=== PATIENT | female | born 1990 | race Caucasian/White ===

== ENCOUNTER 2019-04-09 09:34 | Emergency (ER) | payer OTHER, SELFPAY ==
--- NOTE | 2019-04-09 10:58 | ED_ITS ---
HPI - Eye Problem General Chief complaint: Eye Problems Stated complaint: Left eye pain History of Present Illness HPI Narrative: 49-year-old female this morning with green discharge from the left eye a lot itching. She denies pain/blurring. No right eye involvement. She does not wear contacts. Denies nasal congestion sore throat or cough. She has 2 young children at home with her Related Data Allergies Allergy/AdvReac Type Severity Reaction Status Date / Time No Known Allergies Allergy Unverified 02/09/17 11:53 Review of Systems Constitutional: Constitutional: Reports no additional constitutional complaints Eyes: Eyes: Reports no additional eye complaints and Denies photophobia [facility] Family History Family History (Updated 04/09/19 @ 11:00 by Getachew Delaney MD) Daughter Seizure disorder Exam Const: General: no acute distress HENMT: Face and sinus: normal facial exam Eyes: Conjunctivae: conjunctivae normal Pupils: Equal, round and reactive pupils present Other: crusted d.c. on left lower eyelash [place] 20/20 os and and od Neck: Neck: no lymphadenopathy Course Vital Signs Vital signs: Vital Signs Temperature 36.6 C 04/09/19 11:02 Pulse Rate 78 04/09/19 11:02 Respiratory Rate 16 04/09/19 11:02 Blood Pressure 141/83 H 04/09/19 11:02 Pulse Oximetry 98 04/09/19 11:02 Temperature 36.6 C 04/09/19 11:02 Pulse Rate 78 04/09/19 11:02 Respiratory Rate 15 04/09/19 11:08 Blood Pressure 141/83 H 04/09/19 11:02 Pulse Oximetry 98 04/09/19 11:02 MDM - Eye Problem Differential Diagnosis Differential diagnosis: Likely corneal abrasion and conjunctivitis Discharge Plan Discharge Clinical Impression: Conjunctivitis Qualifiers: Conjunctivitis type: acute Acute conjunctivitis type: unspecified Laterality: left Qualified Code(s): H10.32 - Unspecified acute conjunctivitis, left eye Patient Disposition: Home, Self-Care Condition: Stable Instructions: Antibiotic Form, Conjunctivitis (ED) Additional Instructions: Follow up if no resolution in 5 days, return if worse. Prescriptions: New sulfacetamide sodium 10 % drops 1 drop EACH EYE Q4H Qty: 5 RF: 0 Follow-up/Referrals: PHYSICIAN NOT ON STAFF,NONSTAFF [Primary Care Provider] - Stand Alone Forms: Work/School Release IP Time of Disposition: 11:04 Discharge Date/Time: 04/09/19 11:10
[2019-04-09 11:02] VITALS: BP 141/83; PULSE 78; RESP 16; TEMP 36.6; O2SAT 98
[2019-04-09 11:08] VITALS: RESP 15
== END 2019-04-09 11:10 | disposition home or self-care (01) ==
PROVIDERS: Emergency Provider Family Medicine
DX: H10.32 Unspecified acute conjunctivitis, left eye (principal)
CPT/HCPCS: 99283

== ENCOUNTER 2019-11-30 21:53 | Emergency (ER) | payer OTHER, SELFPAY ==
--- NOTE | ~2019-11-30 | XR_ITS ---
EXAMINATION: XR sacrum coccyx min 2V DATE: 11/30/2019 22:40 INDICATION: Tailbone pain post fall TECHNIQUE: Frontal, angled frontal and lateral views of the sacrum and coccyx were obtained. COMPARISON: CT dated 08/13/2014 FINDINGS: Alignment is normal. No fracture. Sacral arches are intact. Bilateral sacroiliac and hip joint spaces are normal. Couple phleboliths in the left hemipelvis. IMPRESSION: 1. Negative sacrum and coccyx radiographs. Reviewed, dictated and finalized at location A.
--- NOTE | ~2019-11-30 | XR_ITS ---
EXAMINATION: XR ankle RT 2V DATE: 11/30/2019 22:39 INDICATION: Posterior right ankle pain post fall TECHNIQUE: Anteroposterior, oblique, mortise, and lateral views of the right ankle were obtained. COMPARISON: None. FINDINGS: Alignment is normal. No fracture. Joint spaces are well maintained. No ankle joint effusion. The so ft tissues are unremarkable. IMPRESSION: 1. Negative right ankle radiographs. Reviewed, dictated and finalized at location A.
[2019-11-30 22:02] VITALS: BP 139/78; PULSE 97; RESP 16; TEMP 36.8; O2SAT 100
[2019-11-30] MEDS: KETOROLAC (*BKC) 60 MG/2 ML VIAL IM (22:13)
--- NOTE | 2019-11-30 23:00 | ED.FALL ---
HPI - Fall General Chief Complaint: Fall Stated Complaint: R ankle pain, tailbone pain Source: patient Mode of arrival: ambulatory History of Present Illness HPI Narrative: this is a 29-year-old female with no significant past medical history fell down stairs earlier today causing pain in her lower back and in her right ankle, she slid stairs with no loss of consciousness currently no headache no blurry vision no nausea or vomiting no chest pain no shortness of breath. Does have some pain elicited to the lateral aspect of her right ankle and her lower sacral area. complaint: fall Onset (ago): hour(s) Fall from: down stairs (#) (Slid down the stairs) Fall witnessed: no Place fall occurred: home Loss of consciousness: none Prolonged down time: no Symptoms prior to fall: none Context: tripped/slipped Location of injury - extremities: Right: ankle Severity: moderate Severity scale (1-10): 8 Quality: aching Related Data Allergies Allergy/AdvReac Type Severity Reaction Status Date / Time No Known Allergies Allergy Unverified 02/09/17 11:53 Review of Systems Review of Systems: All systems reviewed & are unremarkable except as noted in HPI and below PMFSH Past Medical History Medical History Patient denies medical problems Family History Family History Daughter Seizure disorder Exam Const: General: no acute distress Orientation/consciousness: patient oriented x3 Eyes: Conjunctivae: conjunctivae normal Pupils: Equal, round and reactive pupils present Neck: Neck: normal visual inspection, no lymphadenopathy and no meningeal signs Chest: Chest palpation & inspection: normal inspection of the chest Resp: Effort & Inspection: normal respiratory effort Cardio: Rate: regular rate Rhythm: regular rhythm GI: Inspection: distended : General: Yes no CVA tenderness Skin: General skin exam: normal color Rashes: no rashes Neuro: General: patient oriented x3 Extrem: General: normal to inspection and no pedal edema Other: Pain with palpation medial aspect of her arm right ankle with palpation with no swelling no numbness or tingling. Course Course Emergency Course: Pain level improved with some IM a Toradol, reassured patient that x-rays show no fractures, and placed in Sumeet wrap on her right ankle Vital Signs Vital signs: Vital Signs Temperature 36.8 C 11/30/19 22:02 Pulse Rate 97 11/30/19 22:02 Respiratory Rate 16 11/30/19 22:02 Blood Pressure 139/78 11/30/19 22:02 Pulse Oximetry 100 11/30/19 22:02 Temperature 36.8 C 11/30/19 22:02 Pulse Rate 97 11/30/19 22:02 Respiratory Rate 16 11/30/19 22:02 Blood Pressure 139/78 11/30/19 22:02 Pulse Oximetry 100 11/30/19 22:02 Critical Care Time Critical Care Time Critical Care Time: No Discharge Plan Discharge Clinical Impression: Ankle sprain Qualifiers: Encounter type: initial encounter Involved ligament of ankle: unspecified ligament Laterality: right Qualified Code(s): S93.401A - Sprain of unspecified ligament of right ankle, initial encounter Low back pain Qualifiers: Chronicity: acute Back pain laterality: midline Sciatica presence: without sciatica Qualified Code(s): M54.5 - Low back pain Patient Disposition: Home, Self-Care Condition: Stable Instructions: Antibiotic Form, Ankle Sprain (ED), Acute Low Back Pain (ED) Additional Instructions: follow-up with primary care physician if symptoms persist or worsen. Prescriptions: New naproxen 500 mg tablet 500 mg PO BID PRN (Reason: pain) Qty: 14 RF: 0 Follow-up/Referrals: UNKNOWN,DOCTOR [Primary Care Provider] - Time of Disposition: 23:07
[2019-11-30 23:09] VITALS: BP 139/85; PULSE 82; RESP 20; TEMP 36.6; O2SAT 98
== END 2019-11-30 23:18 | disposition home or self-care (01) ==
PROVIDERS: Emergency Provider Emergency Medicine
DX: S93.401A Sprain of unspecified ligament of right ankle, initial encounter (principal); M54.5 Low back pain; W10.9XXA Fall (on) (from) unspecified stairs and steps, initial encounter
CPT/HCPCS: 72220; 73600; 96372; 99283; 99284; J1885

== ENCOUNTER 2020-01-12 03:30 | Emergency (ER) | payer OTHER, SELFPAY ==
--- NOTE | 2020-01-12 03:53 | ED.DENTAL ---
HPI - Dental/Oral General Chief complaint: Dental/Oral Stated complaint: Jaw pain right side Source: patient Mode of arrival: ambulatory Limitations: no limitations History of Present Illness HPI Narrative: patient presents with are dental pain right upper molar area has chronic do tooth decay and is scheduled to see a dentist in the morning, presents with some dental pain rates it at about a 6/10 with surrounding gum inflammation there is no right submandibular gland swelling, no nausea vomiting no fever chills no shortness of breath. MD Complaint: tooth pain Teeth map: 1. dental cares with surrounding gum inflammation Onset (ago): day(s) Duration: intermittent Severity: moderate Severity scale (1-10): 6 Relieving factors: NSAIDs Exacerbating factors: chewing Context: history of dental caries Associated symptoms: gum swelling Related Data Allergies Allergy/AdvReac Type Severity Reaction Status Date / Time No Known Allergies Allergy Unverified 02/09/17 11:53 Review of Systems Review of Systems: All systems reviewed & are unremarkable except as noted in HPI and below PMFSH Past Medical History Medical History (Updated 01/12/20 @ 03:55 by Leonardo Bagley MD) Patient denies medical problems Family History Family History Daughter Seizure disorder Exam Const: General: no acute distress and alert Orientation/consciousness: patient oriented x3 Limitations: altered mental status HENMT: Head: normal to inspection Eyes: Conjunctivae: conjunctivae normal Pupils: Equal, round and reactive pupils present EOM: EOMs intact bilaterally Neck: Neck: normal visual inspection and no lymphadenopathy Chest: Chest palpation & inspection: normal inspection of the chest Resp: Effort & Inspection: normal respiratory effort Auscultation: clear to auscultation bilaterally Cardio: Rate: regular rate Rhythm: regular rhythm GI: Auscultation: normal bowel sounds : General: Yes no CVA tenderness Skin: General skin exam: normal color Rashes: no rashes Neuro: General: patient oriented x3 Extrem: General: normal to inspection Psych: Mental Status: mental status grossly normal Course Course Emergency Course: Patient received Toradol and 1 g IM ceftriaxone advised to keep her scheduled follow-up with her dentist this morning. Critical Care Time Critical Care Time Critical Care Time: No Discharge Plan Discharge Clinical Impression: Dental abscess Patient Disposition: Home, Self-Care Condition: Stable Instructions: Antibiotic Form, Dental Abscess (ED) Additional Instructions: Take medicine as prescribed and follow-up dentist as scheduled. Prescriptions: New amoxicillin 500 mg tablet 500 mg PO TID Qty: 30 RF: 0 naproxen 500 mg tablet 500 mg PO BID PRN (Reason: pain) Qty: 20 RF: 0 No Action naproxen 500 mg tablet 500 mg PO BID PRN (Reason: pain) Qty: 14 RF: 0 Follow-up/Referrals: UNKNOWN,DOCTOR [Primary Care Provider] - Stand Alone Forms: Work/School Release IP Time of Disposition: 03:56
[2020-01-12 03:56] VITALS: BP 150/84; PULSE 81; RESP 16; TEMP 36.5; O2SAT 99
[2020-01-12] MEDS: cefTRIAXone 1 GM VIAL IM (04:05)
[2020-01-12] MEDS: KETOROLAC (*BKC) 60 MG/2 ML VIAL IM (04:05)
[2020-01-12] MEDS: LIDOCAINE HCL 1% LOCAL INJ 20 ML VIAL (04:06)
[2020-01-12 04:17] VITALS: BP 145/86; PULSE 73; RESP 20; O2SAT 99
== END 2020-01-12 04:22 | disposition home or self-care (01) ==
PROVIDERS: Emergency Provider Emergency Medicine
DX: K04.7 Periapical abscess without sinus (principal)
CPT/HCPCS: 96372; 99283; 99284; J0696; J1885

== ENCOUNTER 2020-03-09 17:48 | Emergency (ER) | payer OTHER, SELFPAY ==
[2020-03-09 17:55] VITALS: BP 162/101; PULSE 79; RESP 20; TEMP 36.7; O2SAT 99
--- NOTE | 2020-03-09 18:05 | ED_ITS ---
HPI - Dental/Oral General Chief complaint: Dental/Oral Stated complaint: tooth ache Source: patient Mode of arrival: ambulatory Limitations: no limitations History of Present Illness HPI Narrative: this is a 30-year-old female with a history of dental pain and is currently having dental pain right upper molar area with surrounding gum inflammation with chills and a tender right submandibular gland with no fever, no nausea vomiting no shortness of breath. The patient states that she seen a dentist and has a follow-up appointment. Has tried [id number] medications with minimal relief. Teeth map: 1. Tender and surrounding gum inflammation Onset (ago): day(s) Duration: constant Severity: moderate Severity scale (1-10): 8 Relieving factors: NSAIDs Exacerbating factors: chewing Context: history of dental caries and poor dental care Associated symptoms: gum swelling Related Data Allergies Allergy/AdvReac Type Severity Reaction Status Date / Time No Known Allergies Allergy Unverified 02/09/17 11:53 Review of Systems Review of Systems: All systems reviewed & are unremarkable except as noted in HPI and below PMFSH Past Medical History Medical History (Updated 03/09/20 @ 18:09 by Leonardo Bagley MD) Patient denies medical problems Family History Family History Daughter Seizure disorder Exam Const: General: no acute distress and alert Orientation/consciousness: luis alberto ent oriented x3 HENMT: Head: normal to inspection Eyes: Conjunctivae: conjunctivae normal Pupils: Equal, round and reactive pupils present EOM: EOMs intact bilaterally Neck: Neck: normal visual inspection Other: Right submandibular swelling and tenderness with palpation Chest: Chest palpation & inspection: normal inspection of the chest Resp: Effort & Inspection: normal respiratory effort Auscultation: clear to auscultation bilaterally Cardio: Rate: regular rate Rhythm: regular rhythm GI: Auscultation: normal bowel sounds Psych: Appearance: grossly normal Mental Status: mental status grossly normal Affect: normal affect Course Course Emergency Course: patient received Toradol and a dose of amoxicillin, and advised follow-up with her dentist as soon as possible. Critical Care Time Critical Care Time Critical Care Time: No Discharge Plan Discharge Clinical Impression: Toothache, Dental abscess Patient Disposition: Home, Self-Care Condition: Stable Instructions: Antibiotic Form, Dental Abscess (ED) Additional Instructions: Follow-up dentist as soon as possible, and take medicine as prescribed. Prescriptions: New amoxicillin 500 mg capsule 500 mg PO TID Qty: 30 RF: 0 naproxen 500 mg tablet 500 mg PO BID Qty: 14 RF: 0 Follow-up/Referrals: UNKNOWN,DOCTOR [Primary Care Provider] - Stand Alone Forms: Work/School Release IP Time of Disposition: 18:10
[2020-03-09] MEDS: KETOROLAC (*BKC) 60 MG/2 ML VIAL IM (18:14)
[2020-03-09] MEDS: AMOXICILLIN 500 MG CAPSULE PO (18:14)
[2020-03-09 18:20] VITALS: RESP 18
== END 2020-03-09 18:25 | disposition home or self-care (01) ==
PROVIDERS: Emergency Provider Emergency Medicine
DX: K08.89 Other specified disorders of teeth and supporting structures (principal); K04.7 Periapical abscess without sinus
CPT/HCPCS: 96372; 99283; A9270; J1885